=== PATIENT | male | born 1995 | race Two or more races ===

== ENCOUNTER 2019-01-23 10:09 | Emergency (ER) | payer MEDICAID, OTHER ==
[~2019-01-23] VITALS: Ht 165.1 cm; Wt 59.9 kg
[2019-01-23 10:20] VITALS: BP 152/81
[2019-01-23] MEDS ORDERED: LIDOCAINE-MPF 1%, 5ML ONE (10:47)
[2019-01-23] MEDS ORDERED: DIPH,PERTUSS(ACELL),TET VAC/PF 0.5 ML IM-VACC ONE ×2 (11:00→11:33)
[2019-01-23] MEDS ORDERED: LIDOCAINE-MPF 1%, 5ML INFIL ONE (11:00)
[2019-01-23] MEDS ORDERED: BACITRACIN ZINC OINT 500U/GM, 0.9 GM ONE ×2 (11:33→12:18)
--- NOTE | 2019-01-23 12:39 | NUR ---
Patient/Caregiver given discharge instructions and they have confirmed that they understand the instructions. Patient ambulatory with steady gait.
== END 2019-01-23 12:40 | disposition home or self-care (01) ==
LOC: ED 10:50
DX: S01.511A Laceration without foreign body of lip, initial encounter (principal); S40.812A Abrasion of left upper arm, initial encounter; S40.811A Abrasion of right upper arm, initial encounter; S70.211A Abrasion, right hip, initial encounter; V00.131A Fall from skateboard, initial encounter; Y93.51 Activity, roller skating (inline) and skateboarding; Y92.488 Other paved roadways as the place of occurrence of the external cause; Y99.8 Other external cause status
CPT/HCPCS: 12051; 90471; 90715; 99284

== ENCOUNTER 2019-01-30 19:12 | Emergency (ER) | payer OTHER ==
[~2019-01-30] VITALS: Ht 165.1 cm; Wt 58.6 kg
[2019-01-30 19:13] VITALS: BP 132/63
== END 2019-01-30 19:50 | disposition home or self-care (01) ==
LOC: ED 19:20
DX: S01.511D Laceration without foreign body of lip, subsequent encounter (principal); X58.XXXD Exposure to other specified factors, subsequent encounter
CPT/HCPCS: 99281